=== PATIENT | female | born 1980 | race Hispanic/Latino ===

== ENCOUNTER 2017-12-10 11:37 | Emergency (ER) | payer OTHER ==
[2017-12-10] MEDS ORDERED: DEXAMETHASONE SOD PHOSPHATE 10MG/ML 1ML VIAL ONE (12:53)
[2017-12-10] MEDS ORDERED: ONDANSETRON ODT 4 MG TAB ONE (12:54)
[2017-12-10] MEDS ORDERED: MORPHINE SULFATE 8 MG/ML VIAL ONE (12:54)
== END 2017-12-10 13:20 | disposition home or self-care (01) ==
LOC: EDH 11:37
DX: M54.12 Radiculopathy, cervical region (principal); I10 Essential (primary) hypertension; Z87.891 Personal history of nicotine dependence
CPT/HCPCS: 96372 ×2; 99284; J1100; J2270

== ENCOUNTER 2018-05-10 17:48 | Emergency (ER) | payer OTHER ==
[2018-05-10] MEDS ORDERED: IBUPROFEN 600 MG TABLET ONE (18:24)
== END 2018-05-10 18:31 | disposition home or self-care (01) ==
LOC: EDH 17:48
DX: S90.32XA Contusion of left foot, initial encounter (principal); I10 Essential (primary) hypertension; W20.8XXA Other cause of strike by thrown, projected or falling object, initial encounter; Y93.89 Activity, other specified; Y92.89 Other specified places as the place of occurrence of the external cause; Y99.8 Other external cause status
CPT/HCPCS: 73630

== ENCOUNTER 2018-06-12 08:39 | Emergency (ER) | payer SELFPAY ==
[2018-06-12] MEDS ORDERED: KETOROLAC TROMETHAMINE 60 MG/2 ML VIAL ONE (10:13)
[2018-06-12] MEDS ORDERED: CYCLOBENZAPRINE HCL 10 MG TABLET ONE (10:14)
== END 2018-06-12 12:22 | disposition home or self-care (01) ==
LOC: EDH 08:39
DX: M54.13 Radiculopathy, cervicothoracic region (principal); I10 Essential (primary) hypertension; Z98.890 Other specified postprocedural states
CPT/HCPCS: 72072; 81025; 96372; 99284; J1885

== ENCOUNTER 2020-07-25 07:03 | Observation (INO) | payer OTHER ==
[2020-07-24 12:00] LABS: BASOPHILS % (AUTO) 0.7 % (0.0-5.0); EOSINOPHILS % (AUTO) 3.2 % (0.0-8.0); HEMATOCRIT 34.6 % (36-48); LYMPHOCYTES % (AUTO) 34.2 % (21.0-51.0); MEAN CORPUSCULAR HEMOGLOBIN 23.2 pg (27.0-33.0); MEAN CORPUSCULAR HGB CONC 30.1 g/dL (32.0-36.0); MEAN CORPUSCULAR VOLUME 77.2 fL (79-99); MONOCYTES % (AUTO) 5.8 % (3.0-13.0); NEUTROPHILS % (AUTO) 55.9 % (40.0-77.0); PLATELET COUNT (AUTO) 403 K/uL (130-400); RED BLOOD CELL COUNT(AUTO) 4.48 MIL/uL (4.00-5.50); RED CELL DISTRIBUTION WIDTH 18.1 % (11.0-15.5); WHITE BLOOD COUNT (AUTO) 9.1 K/uL (4.8-10.8)
[2020-07-24 15:21] VITALS: BP 152/98
[2020-07-25] VITALS (23 sets, daily range): BP systolic 111–174; BP diastolic 67–100
[~2020-07-25] VITALS: Ht 165.1 cm; Wt 93.3 kg
[2020-07-25] MEDS: CEFAZOLIN SODIUM 1 GM VIAL IVP SCH ×2 (06:00→10:20)
[~2020-07-25 07:03] MED LIST: ACET-2123 PO; LACTATED RINGERS 1000ML 1,000 ML IV SCH; LISI20TA24 PO
[2020-07-25] MEDS ORDERED: MIDAZOLAM HCL 1 MG/ML 2ML VIAL ONE (09:59)
[2020-07-25] MEDS ORDERED: SUCCINYLCHOLINE CHLORIDE 20 MG/ML 10 ML VIAL ONE (10:02)
[2020-07-25] MEDS ORDERED: LIDOCAINE PF 2% 5ML ABBOJECT ONE (10:02)
[2020-07-25] MEDS ORDERED: PROPOFOL 10 MG/ML 20ML VIAL IV ONE (10:03)
[2020-07-25] MEDS ORDERED: ROCURONIUM 10MG/1ML SYR 10 MG/ML ML ONE ×2 (10:03→11:04)
[2020-07-25] MEDS ORDERED: FENTANYL CITRATE PF 50 MCG/1 ML 2ML VIAL ONE ×2 (10:04→12:00)
[2020-07-25] MEDS ORDERED: MEPERIDINE-PF 25 MG/ML SYG ONE ×2 (10:28→12:38)
[2020-07-25] MEDS ORDERED: GLYCOPYRROLATE 1 MG/5 ML SYRINGE ONE ×2 (10:46→11:57)
[2020-07-25] MEDS ORDERED: ONDANSETRON HCL 4 MG/2 ML VIAL ONE (10:56)
[2020-07-25] MEDS ORDERED: DEXAMETHASONE SOD PHOSPHATE 10MG/ML 1ML VIAL ONE (10:57)
[2020-07-25] MEDS ORDERED: NEOSTIGMINE 5MG/5ML SYR IV ONE (11:57)
[2020-07-25] MEDS ORDERED: KETOROLAC TROMETHAMINE 30MG/ML ONE (12:38)
[2020-07-25] MEDS ORDERED: SIMETHICONE 80 MG TAB.CHEW PO PRN (13:15)
[2020-07-25] MEDS ORDERED: ACETAMINOPHEN-CODEINE 300/30MG TAB PO PRN (13:15)
[2020-07-25] MEDS ORDERED: BISACODYL 10 MG SUPP.RECT RC PRN (13:15)
[2020-07-25] MEDS ORDERED: PROMETHAZINE HCL 25 MG/ML 1ML AMPULE IM PRN (13:15)
[2020-07-25] MEDS: PROMETHAZINE HCL 25 MG/ML 1ML AMPULE IM PRN ×3 (13:48→21:21)
[2020-07-25] MEDS: MEPERIDINE-PF 75 MG/ML SYG IM PRN ×2 (13:48→17:50)
[2020-07-25] MEDS: DEXTROSE 5 %-0.45 % NACL 1,000 ML IV PRN ×2 (14:01→21:33)
[2020-07-25] MEDS: ONDANSETRON HCL 4 MG/2 ML VIAL IVP PRN (16:51)
[2020-07-25] MEDS: DOCUSATE SODIUM 100 MG CAP PO PRN (20:54)
[2020-07-26] MEDS: ONDANSETRON HCL 4 MG/2 ML VIAL IVP PRN (00:47)
[2020-07-26] MEDS: MEPERIDINE-PF 75 MG/ML SYG IM PRN (00:55)
[2020-07-26 03:05] VITALS: BP 162/87
[2020-07-26] MEDS: IBUPROFEN 600 MG TABLET PO PRN ×2 (04:03→08:30)
[2020-07-26] MEDS: DEXTROSE 5 %-0.45 % NACL 1,000 ML IV PRN (06:52)
[2020-07-26 07:03] LABS: HEMATOCRIT 31.2 % (36-48); MEAN CORPUSCULAR HEMOGLOBIN 23.2 pg (27.0-33.0); MEAN CORPUSCULAR HGB CONC 30.8 g/dL (32.0-36.0); MEAN CORPUSCULAR VOLUME 75.4 fL (79-99); RED BLOOD CELL COUNT(AUTO) 4.14 MIL/uL (4.00-5.50); RED CELL DISTRIBUTION WIDTH 18.1 % (11.0-15.5); WHITE BLOOD COUNT (AUTO) 13.8 K/uL (4.8-10.8)
[2020-07-26 07:24] VITALS: BP 115/75
[2020-07-26] MEDS: DOCUSATE SODIUM 100 MG CAP PO PRN (08:30)
[2020-07-26] MEDS ORDERED: FERR-72 PO (14:22)
[2020-07-26] MEDS ORDERED: ACET1TAB25 PO (14:22)
[2020-07-26] MEDS ORDERED: ACETAMINOPHEN-CODEINE 300/30MG TAB ONE (16:12)
[2020-07-26] MEDS ORDERED: ACETAMINOPHEN-CODEINE 300/30MG TAB PO PRN (16:15)
[2020-07-26 16:43] VITALS: BP 110/66
== END 2020-07-26 17:25 | disposition home or self-care (01) ==
LOC: DAH 07:03 → WSH 07:04
PROVIDERS: ADMIT Obstetrics & Gynecology; ATTEND Obstetrics & Gynecology
DX: N92.1 Excessive and frequent menstruation with irregular cycle (principal); Z20.822 Contact with and (suspected) exposure to COVID-19; K46.9 Unspecified abdominal hernia without obstruction or gangrene; N85.2 Hypertrophy of uterus; N83.201 Unspecified ovarian cyst, right side; N83.202 Unspecified ovarian cyst, left side; D50.0 Iron deficiency anemia secondary to blood loss (chronic)
CPT/HCPCS: 36415 ×2; 57268; 85025; 85027; 86850; 86900; 86901; 96361 ×2; 96372 ×2; 96374; 96376; A4215 ×2; A4221; A4222; A4223; A4344; A4600; A4649 ×3; A4663; A4930; A6260; C1769 ×2; C9803; G0378 ×31; J0330; J0690; J1100; J1885; J2001; J2175 ×5; J2250; J2405 ×3; J2550 ×3; J2704; J2710; J3010 ×2; J3490 ×2; J7120 ×2; U0003

== ENCOUNTER 2020-08-29 10:25 | Emergency (ER) | payer OTHER ==
[~2020-08-29] VITALS: Ht 160 cm; Wt 83.9 kg
[~2020-08-29 10:25] MED LIST changes: -ACET-2123 PO; +ACET1TAB25 PO; +FERR-72 PO; -LACTATED RINGERS 1000ML 1,000 ML IV SCH
[2020-08-29 10:26] VITALS: BP 152/94
[2020-08-29 11:31] LABS: BASOPHILS % (AUTO) 0.7 % (0.0-5.0); EOSINOPHILS % (AUTO) 2.9 % (0.0-8.0); HEMATOCRIT 36.3 % (36-48); MEAN CORPUSCULAR HGB CONC 31.1 g/dL (32.0-36.0); MEAN CORPUSCULAR VOLUME 77.2 fL (79-99); MONOCYTES % (AUTO) 7.2 % (3.0-13.0); NEUTROPHILS % (AUTO) 53.9 % (40.0-77.0); PLATELET COUNT (AUTO) 377 K/uL (130-400); RED CELL DISTRIBUTION WIDTH 15.5 % (11.0-15.5)
[2020-08-29 11:39] LABS: CREATININE 0.8 mg/dL (0.5-1.5); POTASSIUM 4.1 mmol/L (3.5-5.1)
[2020-08-29 11:43] LABS: ALBUMIN 3.6 g/dL (3.5-5.0); BILIRUBIN,TOTAL 0.3 mg/dL (0.2-1.0); TOTAL PROTEIN, SERUM 7.6 g/dL (6.0-8.3)
[2020-08-29] MEDS ORDERED: HYDROCODONE/ACETAMINOPHEN 5/325 MG TAB PO SCH (12:30)
[2020-08-29 13:15] LABS: APPEARANCE,URINE Clear (CLEAR); BILIRUBIN,URINE Negative (NEGATIVE); COLOR,URINE Yellow (YELLOW); GLUCOSE, URINE (UA) Negative (NEGATIVE); KETONES,URINE Negative (NEGATIVE); LEUKOCYTE ESTERASE ,URINE Trace (NEGATIVE); NITRATE,URINE Negative (NEGATIVE); OCCULT BLOOD,URINE Negative (NEGATIVE); PH,URINE 5.5 (5.0-8.0); PROTEIN,URINE Negative (NEGATIVE); UROBILINOGEN,URINE 0.2 mg/dL (0.2-1.0)
[2020-08-29 13:32] LABS: BACTERIA,URINE Rare /HPF (None Seen); RBC,URINE 0-1 /HPF (0-1); SQUAMOUS EPITHELIAL CELL,UR Few /HPF (0-2); WBC,URINE 0-1 /HPF (0-1)
[2020-08-29 14:03] VITALS: BP 159/88
[2020-08-29] MEDS ORDERED: CYCL5TAB PO (14:24)
== END 2020-08-29 14:53 | disposition home or self-care (01) ==
LOC: EDH 10:25
DX: I10 Essential (primary) hypertension (principal); Z88.8 Allergy status to other drugs, medicaments and biological substances; Z79.899 Other long term (current) drug therapy; Z90.710 Acquired absence of both cervix and uterus; Z98.890 Other specified postprocedural states
CPT/HCPCS: 36415; 70450; 80053; 81001; 81025; 84484; 85025; 93005